=== PATIENT | male | born 1975 | race Caucasian/White ===

== ENCOUNTER 2025-01-23 07:23 | Outpatient (OUT) | payer OTHER, SELFPAY ==
--- OUTSIDE RECORDS SUMMARY | 2025-01-23 07:34 | XMS_ITS | Clinical Summary ---
Author Organization [facility] Address [address] [place] [id number] Care Team Providers Care Property Officer Name Role Phone Unavailable Primary Care Provider Unavailabl e Active Problems ProblemNoted DateDiagnosed NrsqEapdzgp66/17/2011 Social History Tobacco UseTypesPacks/DayYears UsedDateSmoking Tobacco: Never AssessedSex and Gender InformationValueDate RecordedSex Assigned at BirthNot on fileLegal Sex Male01/24/2012 8:34 AM ESTGender IdentityNot on fileSexual OrientationNot on file Plan of Treatment Health MaintenanceDue DateLast DoneCommentsAnxiety Khzykerxi26/07/1992Depression Tkzqjmsyq84/07/1992HIV Eynphrgee58/07/1992Hepatitis C Tlxpcpgll85/07/1992 DTaP,Tdap,Td Vaccine (1 - Tdap)1992Hepatitis B Vaccine (1 of 3 - 19+ 3- dose series)1992Lipid Gvimerygp75/07/2009CT Ayypeoenjtyk56/07/2019 Cologuard (FIT-DNA)12/29/20188448Crkcelwgmtb04/07/2019Colorectal Cancer Screening 2018Diabetes Mygdrfzeg55/07/2019Fecal Occult Blood2018Sigmoidoscopy 2018Pneumococcal Vaccine: 50+ (1 of 1 - PCV)12/30/2023Shingrix Vaccine (1 of 2)12/30/2023ovid-19 Vaccine (1 - 2024-26 season)2024Influenza Vaccine (#1)2024
--- OUTSIDE RECORDS SUMMARY | 2025-01-23 07:34 | XMS_ITS | Clinical Summary ---
Author Organization [facility] Address [address] [place] [address] Care Team Providers Care Bow Maker Custom Name Role Phone Unavailable Primary Care Provider Unavailabl e Social History Tobacco UseTypesPacks/DayYears UsedDateSmoking Tobacco: Never AssessedSex and Gender InformationValueDate RecordedSex Assigned at BirthNot on fileLegal Sex Male05/06/2022 6:56 PM EDTGender IdentityNot on fileSexual OrientationNot on file Last Filed Vital Signs Vital SignReadingTime TakenCommentsBlood Kywgdziw441/6809 12:00 PM EDT Pulse--Temperature--Respiratory Rate--Oxygen Saturation--Inhaled Oxygen Concentration--Vcdyju56.1 kg (192 lb)10/28/2017 12:00 PM YABCsdjto311.9 cm (6') 10/28/2017 12:00 PM EDTBody Mass Index26.04010/28/2017 12:00 PM EDT Plan of Treatment Not on file
--- OUTSIDE RECORDS SUMMARY | 2025-01-23 07:34 | XMS_ITS | Clinical Summary ---
Author Organization [facility] tem Address [facility] [id number] [address] [place] [address] Care Team Providers Care Personal Care Attendant Name Role Phone No Pcp, No Pcp Primary Care Provider Unavailabl e Allergies Active AllergyReactionsCriticalityNoted LcaqLfxkjqzzGedtwtqvjzxra59/01/2024 States he has a 'hard time' with 'high doses' Medications No known medications Social History Tobacco UseTypesPacks/DayYears UsedDateSmoking Tobacco: NeverSmokeless Tobacco: CurrentChew Tobacco Cessation:Ready to Q uit: Not Asked; Counseling Given: Not Answered Alcohol UseStandard Drinks/WeekCommentsNot Currently0 (1 standard drink = 0.6 oz pure alcohol)ChildcareAnswerDate LfjowvtvBlkjitsfzEcmhehi64/12/2019Employment AnswerDate AixcyjlyLmijsgejvyBztxquv66/12/2019Hunger ScreeningAnswerDate RecordedWithin the past 12 months we worried whether our food would run out before we got money to buy more.Never True04/23/2023Within the past 12 months the food we bought just didn't last and we didn't have money to get more.Never True4Purpose - LifeAnswerDate RecordedPurpose and direction in life Tkdnscc3104/04/2020ex and Gender InformationValueDate RecordedSex Assigned at BirthNot on fileLegal LaxUnbc9409/27/2014 11:59 AM EDTGender IdentityNot on file Sexual OrientationNot on file Last Filed Vital Signs Vital SignReadingTime TakenCommentsBlood Wbslaahw834/8903/02/2023 5:00 PM EST Xuzle0591/02/2023 5:00 PM FJMUyzchxzmklt96 ??C (98.6 ??F)04/23/2023 4:02 PM EST Respiratory Bsce478504/23/2023 4:02 PM ESTOxygen Nonosknqxe110%04/23/2023 5:00 PM ESTInhaled Oxygen Concentration--Zgegdi61.3 kg (219 lb)04/23/2023 4:02 PM EST Dnmkbi492.9 cm (6')04/23/2023 4:02 PM ESTBody Mass Index29.7004/23/2023 4:02 PM EST Plan of Treatment Health MaintenanceDue DateLast DoneCommentsDepression Ityztecqb84/07/1986 DTaP,Tdap and Td Vaccines (1 - Tdap)1992Zoster (Shingles) Vaccine (1 of 2) 12/30/2023dult BMI Tisqqgpzt08/01/79652904/23/2023Tobacco Wzcsalunf88/01/2025 04/23/2023Influenza Wzejosi1410/23/2024 Medical Devices Not on file Insurance Care Teams Team MemberRelationshipSpecialtyStart DateEnd Date [place], [place] [address] PCP - [facility]04/23/23
[2025-01-23 08:03] LABS: Hematocrit 44.1 % (42.0-54.0); Hemoglobin 15.5 g/dL (14.0-18.0); Immature Granulocytes Abs Auto 0.01 10^3/uL (0.00-0.03); Immature Granulocytes Pct Auto 0.2 % (0.0-0.5); Lymphocytes Absolute Auto 1.4 10^3/uL (1.2-3.8); Mean Corpuscular HGB Conc 35.1 g/dL (29.9-35.2); Mean Corpuscular Hemoglobin 29.8 pg (25.9-34.0); Mean Corpuscular Volume 84.8 fL (80.0-94.0); Platelet Count 341 10^3/uL (150-450); Red Blood Count 5.20 10^6/uL (4.70-6.10); White Blood Count 5.6 10^3/uL (4.0-11.0)
[2025-01-23 09:11] LABS: Alanine Aminotransferase 64 U/L (16-63); Albumin Globulin Ratio 1.0; Albumin Level 3.6 g/dL (3.4-5.0); Alkaline Phosphatase 135 U/L (46-116); Anion Gap 12.6; Aspartate Amino Transferase 31 U/L (15-37); Blood Urea Nitrogen 10.0 mg/dL (7.0-18.0); Calcium 8.9 mg/dL (8.5-10.1); Carbon Dioxide 29.1 mmol/L (21.0-32.0); Chloride 106 mmol/L (98-107); Cholesterol 224 mg/dL (<=200); Estimated GFR (African America >60 (>=60 mL/min/1.73m^2); Estimated GFR (Non-African Ame >60 (>=60 mL/min/1.73m^2); Globulin 3.6 g/dL; Glucose 117 mg/dL (74-106); HDL Cholesterol 44 mg/dL (40-60); Potassium 3.7 mmol/L (3.5-5.1); Sodium 144 mmol/L (136-145); Total Protein 7.2 g/dL (6.4-8.2); Triglycerides 307 mg/dL (<=150); VLDL CHOLESTEROL 61.4 mg/dL
== END 2025-01-23 07:24 | disposition home or self-care (01) ==
LOC: LAB 07:31
DX: Z00.00 Encounter for general adult medical examination without abnormal findings (principal); K21.00 Gastro-esophageal reflux disease with esophagitis, without bleeding; R68.81 Early satiety; R63.4 Abnormal weight loss; E78.2 Mixed hyperlipidemia; Z12.5 Encounter for screening for malignant neoplasm of prostate
CPT/HCPCS: 36415; 80053; 80061; 83036; 85025; G0103